=== PATIENT | male | born 1965 | race Caucasian/White ===

== ENCOUNTER 2020-12-27 23:27 | Emergency (ER) | payer SELFPAY ==
--- NOTE | 2020-12-28 00:05 | ERPHSYRPT ---
- History of Present Illness Time Seen by Provider: 12/27/20 23:30 Historian: patient Exam Limitations: no limitations Physician History: 55 years old male presented in the ER with chief complaint of sudden onset right lower quadrant pain gradually worsening for 2 hours, constant, moderate intensity, dull aching to sharp in nature, radiating to periumbilical and right upper quadrant/flank area, aggravated with movement palpation and associated with nausea but no vomiting. Patient denies any fever chills. No difficulty urination. Denies any testicular swelling or pain. No history of kidney stones. Timing/Duration: hour(s) (2), constant, gradual onset, worse Activities at Onset: rest Quality: sharpness Abdominal Pain Onset Location: RLQ Pain Radiation: RUQ, flank Severity of Pain-Max: moderate Severity of Pain-Current: moderate Modifying Factors: Worsens With: movement, palpation, position Associated Symptoms: nausea Previous symptoms: no prior history Allergies/Adverse Reactions: No Known Drug Allergies Allergy (Verified 12/27/20 23:52) Home Medications: No Reportable Medications [No Reported Medications] 12/27/20 [History] Hx Tetanus, Diphtheria Vaccination/Date Given: Yes Hx Influenza Vaccination/Date Given: No Hx Pneumococcal Vaccination/Date Given: No - Review of Systems Constitutional: No Symptoms Eyes: No Symptoms Ears, Nose, & Throat: No Symptoms Respiratory: No Symptoms Cardiac: No Symptoms Abdominal/Gastrointestinal: Abdominal Pain, Nausea Genitourinary Symptoms: No Symptoms Musculoskeletal: No Symptoms Skin: No Symptoms Neurological: No Symptoms Psychological: No Symptoms Endocrine: No Symptoms Hematologic/Lymphatic: No Symptoms - Past Medical History Pertinent Past Medical History: No - Past Surgical History Past Surgical History: No - Social History Smoking Status: Never smoker Exposure to second hand smoke: No Drug Use: none Patient Lives Alone: No - Nursing Vital Signs Nursing Vital Signs: Initial Vital Signs Temperature 97.6 F 12/27/20 23:53 Pulse Rate 118 H 12/27/20 23:53 Respiratory Rate 18 12/27/20 23:53 Blood Pressure 151/109 12/27/20 23:53 O2 Sat by Pulse Oximetry 98 12/27/20 23:53 Pain Scale Pain Intensity 9 - Physical Exam General Appearance: no apparent distress, alert Eye Exam: eyes nml inspection Ears, Nose, Throat Exam: normal ENT inspection, pharynx normal Neck Exam: normal inspection, supple, full range of motion Respiratory Exam: normal breath sounds, lungs clear Cardiovascular Exam: regular rate/rhythm, normal heart sounds Gastrointestinal/Abdomen Exam: soft, normal bowel sounds, tenderness (right lower quadrant/right flank.) Back Exam: normal inspection, normal range of motion, No CVA tenderness Extremity Exam: normal inspection, normal range of motion, pelvis stable Neurologic Exam: alert, oriented x 3, cooperative Skin Exam: normal color SpO2 Interpretation: normal SpO2: 95 O2 Delivery: Room Air Ordered Tests: Active Orders 24 hr Category Date Time Status IV Insertion STAT Care 12/28/20 00:01 Active NPO (ED) STAT Care 12/28/20 00:01 Active ABDOMEN AND PELVIS W CONTRAST [CT] Stat Exams 12/28/20 00:01 Taken CBC W DIFF Stat Lab 12/28/20 00:01 Completed CMP Stat Lab 12/28/20 00:01 Completed LIPASE Stat Lab 12/28/20 00:01 Completed PT INR [PROTIME WITH INR] Stat Lab 12/28/20 00:00 Completed PTT Stat Lab 12/28/20 00:00 Completed UA W/RFX UR CULTURE Stat Lab 12/28/20 00:12 Completed Medication Summary Generic Name Dose Route Start Last Admin Trade Name Freq PRN Reason Stop Dose Admin Sodium Chloride 1,000 mls @ 100 mls/hr 12/28/20 02:15 12/28/20 02:04 Sodium Chloride 0.9% 1000 Ml IV 01/27/21 02:14 100 mls/hr .Q10H YASH Administration Heparin Sodium/Dextrose 25,000 units in 250 mls @ 10 mls/hr 12/28/20 02:30 12/28/20 02:12 Heparin 25,000 Units/D5w 250ml Premix IV 01/27/21 02:29 10 ml/hr .Q24H YASH 10 mls/hr Administration Discontinued Medications Generic Name Dose Route Start Last Admin Trade Name Freq PRN Reason Stop Dose Admin Heparin Sodium (Beef Lung) Confirm 12/28/20 02:06 Heparin 5000 Units/0.5 Ml (High Risk Med) Administered 12/28/20 02:07 Dose 5,000 unit .ROUTE .STK-MED ONE Heparin Sodium (Beef Lung) 5,000 unit 12/28/20 02:11 12/28/20 02:13 Heparin 5000 Units/0.5 Ml (High Risk Med) IV 12/28/20 02:12 5,000 unit STAT ONE Administration Hydromorphone HCl 1 mg 12/28/20 02:03 12/28/20 02:04 Hydromorphone 1 Mg/Ml Injection IV 12/28/20 02:04 1 mg STAT ONE Administration Hydromorphone HCl Confirm 12/28/20 02:02 Hydromorphone 1 Mg/Ml Injection Administered 12/28/20 02:03 Dose 1 mg .ROUTE .STK-MED ONE Sodium Chloride 1,000 mls @ 999 mls/hr 12/28/20 00:01 12/28/20 01:15 Sodium Chloride 0.9% 1000 Ml IV 12/28/20 01:01 Infused .Q1H1M STA Infusion Sodium Chloride Confirm 12/28/20 00:17 Sodium Chloride 0.9% 1000 Ml Administered 12/28/20 00:18 Dose 1,000 mls @ ud .ROUTE .STK-MED ONE Sodium Chloride Confirm 12/28/20 02:00 Sodium Chloride 0.9% 1000 Ml Administered 12/28/20 02:01 Dose 1,000 mls @ ud .ROUTE .STK-MED ONE Heparin Sodium/Dextrose Confirm 12/28/20 02:06 Heparin 25,000 Units/D5w 250ml Premix Administered 12/28/20 02:07 Dose 25,000 units in 250 mls @ ud IV .STK-MED ONE Ketorolac Tromethamine 30 mg 12/28/20 00:01 12/28/20 00:20 Toradol 30 Mg Injection IV 12/28/20 00:02 30 mg STAT ONE Administration Ketorolac Tromethamine Confirm 12/28/20 00:17 Toradol 30 Mg Injection Administered 12/28/20 00:18 Dose 30 mg .ROUTE .STK-MED ONE Morphine Sulfate 4 mg 12/28/20 01:35 12/28/20 01:38 Morphine Sulfate 4 Mg Inj IV 12/28/20 01:36 4 mg STAT ONE Administration Morphine Sulfate Confirm 12/28/20 01:36 Morphine Sulfate 4 Mg Inj Administered 12/28/20 01:37 Dose 4 mg .ROUTE .STK-MED ONE Ondansetron HCl 4 mg 12/28/20 00:01 12/28/20 00:20 Zofran 4 Mg/2 Ml Vial IV 12/28/20 00:02 4 mg STAT ONE Administration Ondansetron HCl Confirm 12/28/20 00:17 Zofran 4 Mg/2 Ml Vial Administered 12/28/20 00:18 Dose 4 mg .ROUTE .STK-MED ONE Lab/Rad Data: Laboratory Result Diagrams 12/28/20 00:01 12/28/20 00:01 Laboratory Results 12/28/20 12/28/20 12/28/20 Range/Units 00:12 00:01 00:01 WBC 10.5 (4.0-10.5) K/mm3 RBC 5.05 (4.1-5.6) M/mm3 Hgb 15.9 (12.5-18.0) gm/dl Hct 47.3 (42-50) % MCV 93.7 (78-100) fl MCH 31.5 (26-32) pg MCHC 33.6 (32-36) g/dl RDW 13.2 (11.5-14.0) % Plt Count 236 (150-450) K/mm3 MPV 10.7 (7.5-11.0) fl Gran % 81.3 H (36.0-66.0) % Eos # (Auto) 0.13 (0-0.5) Absolute Lymphs (auto) 1.39 (1.0-4.6) Absolute Monos (auto) 0.42 (0.0-1.3) Lymphocytes % 13.3 L (24.0-44.0) % Monocytes % 4.0 (0.0-12.0) % Eosinophils % 1.2 (0.00-5.0) % Basophils % 0.2 (0.0-0.4) % Absolute Granulocytes 8.53 H (1.4-6.9) Basophils # 0.02 (0-0.4) PT (9.4-12.5) SECONDS INR (0.8-3.0) APTT (25.1-36.5) SECONDS Sodium 137 (137-145) mmol/L Potassium 4.0 (3.5-5.1) mmol/L Chloride 101 (98-107) mmol/L Carbon Dioxide 26 (22-30) mmol/L Anion Gap 13.6 (5-15) MEQ/L BUN 18 (9-20) mg/dL Creatinine 1.11 (0.66-1.25) mg/dL Estimated GFR > 60.0 ML/MIN Glucose 119 H (74-106) mg/dL Calcium 8.9 (8.4-10.2) mg/dL Total Bilirubin 0.70 (0.2-1.3) mg/dL AST 45 (17-59) U/L ALT 71 H (0-50) U/L Alkaline Phosphatase 106 (38-126) U/L Serum Total Protein 6.5 (6.3-8.2) g/dL Albumin 3.9 (3.5-5.0) g/dL Lipase 90 (23-300) U/L Urine Color YELLOW (YELLOW) Urine Appearance SLIGHTLY CLOUDY (CLEAR) Urine pH 5.0 (5-6) Ur Specific [place] 1.023 (1.005-1.025) Urine Protein NEGATIVE (Negative) Urine Ketones TRACE (NEGATIVE) Urine Blood NEGATIVE (0-5) Beny/ul Urine Nitrite NEGATIVE (NEGATIVE) Urine Bilirubin NEGATIVE (NEGATIVE) Urine Urobilinogen NEGATIVE (0-1) mg/dL Ur Leukocyte Esterase NEGATIVE (NEGATIVE) Urine WBC (Auto) 0-2 (0-5) /HPF Urine RBC (Auto) NONE (0-2) /HPF U Hyaline Cast (Auto) 0-2 (0-2) /LPF U Epithel Cells (Auto) NONE (FEW) /HPF Urine Bacteria (Auto) NONE (NEGATIVE) /HPF Urine Mucus (Auto) SLIGHT (NEGATIVE) /HPF Urine Culture Reflexed NO (NO) Urine Glucose NEGATIVE (NEGATIVE) mg/dL 12/28/20 Range/Units 00:00 WBC (4.0-10.5) K/mm3 RBC (4.1-5.6) M/mm3 Hgb (12.5-18.0) gm/dl Hct (42-50) % MCV (78-100) fl MCH (26-32) pg MCHC (32-36) g/dl RDW (11.5-14.0) % Plt Count (150-450) K/mm3 MPV (7.5-11.0) fl Gran % (36.0-66.0) % Eos # (Auto) (0-0.5) Absolute Lymphs (auto) (1.0-4.6) Absolute Monos (auto) (0.0-1.3) Lymphocytes % (24.0-44.0) % Monocytes % (0.0-12.0) % Eosinophils % (0.00-5.0) % Basophils % (0.0-0.4) % Absolute Granulocytes (1.4-6.9) Basophils # (0-0.4) PT 12.0 (9.4-12.5) SECONDS INR 1.02 (0.8-3.0) APTT 30.6 (25.1-36.5) SECONDS Sodium (137-145) mmol/L Potassium (3.5-5.1) mmol/L Chloride (98-107) mmol/L Carbon Dioxide (22-30) mmol/L Anion Gap (5-15) MEQ/L BUN (9-20) mg/dL Creatinine (0.66-1.25) mg/dL Estimated GFR ML/MIN Glucose (74-106) mg/dL Calcium (8.4-10.2) mg/dL Total Bilirubin (0.2-1.3) mg/dL AST (17-59) U/L ALT (0-50) U/L Alkaline Phosphatase (38-126) U/L Serum Total Protein (6.3-8.2) g/dL Albumin (3.5-5.0) g/dL Lipase (23-300) U/L Urine Color (YELLOW) Urine Appearance (CLEAR) Urine pH (5-6) Ur Specific [place] (1.005-1.025) Urine Protein (Negative) Urine Ketones (NEGATIVE) Urine Blood (0-5) Beny/ul Urine Nitrite (NEGATIVE) Urine Bilirubin (NEGATIVE) Urine Urobilinogen (0-1) mg/dL Ur Leukocyte Esterase (NEGATIVE) Urine WBC (Auto) (0-5) /HPF Urine RBC (Auto) (0-2) /HPF U Hyaline Cast (Auto) (0-2) /LPF U Epithel Cells (Auto) (FEW) /HPF Urine Bacteria (Auto) (NEGATIVE) /HPF Urine Mucus (Auto) (NEGATIVE) /HPF Urine Culture Reflexed (NO) Urine Glucose (NEGATIVE) mg/dL - Progress Progress: improved, pain not gone completely, re-examined Progress Note: 12/28/20 02:06 25 years old is evaluated for right lower quadrant pain radiating to right flank, initially patient did not want any narcotic pain medication, given Toradol and later on morphine and Dilaudid, on reevaluation pain is better but still not completely resolved. Has white count of 10.5, grossly unremarkable chemistries. No acute UTI. CT abdomen pelvis with contrast showed right renal artery thrombosis with infarction. Given heparin bolus and will continue with drip. Discussed with Dr. Garcia at [facility] ER, he will call back after d iscussion with vascular surgery. Patient is counseled. 12/28/20 02:14 Dr. Ventura vascular surgery recommended consulting urology. I have discussed with Dr. Kaur, went over patient presentation, work-up and CT findings and current management, recommended stopping heparin and patient will be seen in [facility] ER. Discussed with Dr. Garcia again and patient is accepted for transfer Discussed with Dr.: Other Counseled pt/family regarding: lab results, diagnosis, rad results - Departure Departure Disposition: Transfer Clinical Impression: Renal arterial thrombosis, Renal infarction Condition: Fair Critical Care Time: Yes Critical Care Time(excluding separately billable procedures): Critical 30-74 mins Referrals: DOCTOR,NO FAMILY [Primary Care Provider] -
[2020-12-28 00:14] LABS: Absolute Neutrophil Ct (ANC) 8.53 (1.4-6.9); BASOPHIL % 0.2 % (0.0-0.4); Basophil (Absolute #) 0.02 (0-0.4); Eosinophil % 1.2 % (0.00-5.0); Eosinophil (Absolute #) 0.13 (0-0.5); Hematocrit 47.3 % (42-50); Hemoglobin 15.9 gm/dl (12.5-18.0); Lymphocyte (Absolute #) 1.39 (1.0-4.6); Lymphocytes % 13.3 % (24.0-44.0); Mean Cell Volume 93.7 fl (78-100); Mean Corpuscular Hemoglobin 31.5 pg (26-32); Mean Corpuscular Hgb Concent. 33.6 g/dl (32-36); Mean Platelet Volume 10.7 fl (7.5-11.0); Monocyte (Absolute #) 0.42 (0.0-1.3); Neutrophil % 81.3 % (36.0-66.0); Platelet Count 236 K/mm3 (150-450); Red Blood Count 5.05 M/mm3 (4.1-5.6); Red Cell Distribution Width 13.2 % (11.5-14.0); White Blood Count 10.5 K/mm3 (4.0-10.5)
[2020-12-28] MEDS ORDERED: Sodium Chloride 0.9% 1000 ML 1,000 ML ONE ×2 (00:17→02:00)
[2020-12-28] MEDS ORDERED: Zofran 4 MG/2 ML VIAL ONE (00:17)
[2020-12-28] MEDS ORDERED: TORAdol 30 mg Injection ONE (00:17)
[2020-12-28] MEDS: Zofran 4 MG/2 ML VIAL IV ONE (00:20)
[2020-12-28] MEDS: TORAdol 30 mg Injection IV ONE (00:20)
[2020-12-28] MEDS: Sodium Chloride 0.9% 1000 ML 1,000 ML IV STA (00:20)
[2020-12-28 00:26] LABS: ALBUMIN 3.9 g/dL (3.5-5.0); ALKALINE PHOSPHATASE 106 U/L (38-126); ANION GAP 13.6 MEQ/L (5-15); BLOOD UREA NITROGEN 18 mg/dL (9-20); CHLORIDE 101 mmol/L (98-107); Calcium 8.9 mg/dL (8.4-10.2); Carbon Dioxide 26 mmol/L (22-30); Creatinine 1 1.11 mg/dL (0.66-1.25); EST GLOMERULAR FILTRATION RATE > 60.0 ML/MIN; Glucose 119 mg/dL (74-106); LIPASE 90 U/L (23-300); SGOT/AST 45 U/L (17-59); SGPT/ALT 71 U/L (0-50); SODIUM 137 mmol/L (137-145); Total Protein 6.5 g/dL (6.3-8.2)
[2020-12-28 00:27] LABS: Appearance SLIGHTLY CLOUDY (CLEAR); Bilirubin NEGATIVE (NEGATIVE); Blood NEGATIVE Ery/ul (0-5); Glucose NEGATIVE (NEGATIVE); Hyaline Casts 0-2 /LPF (0-2); Ketones TRACE (NEGATIVE); Leukocyte Esterase NEGATIVE (NEGATIVE); Mucus SLIGHT /HPF (NEGATIVE); Nitrite NEGATIVE (NEGATIVE); Protein,Urine Dip NEGATIVE (Negative); Specific Gravity 1.023 (1.005-1.025); Urobilinogen NEGATIVE mg/dL (0-1); WBC 0-2 /HPF (0-5)
[2020-12-28] MEDS ORDERED: MORPHINE SULFATE 4 MG INJ ONE (01:36)
[2020-12-28] MEDS: MORPHINE SULFATE 4 MG INJ IV ONE (01:38)
[2020-12-28 01:57] LABS: INR 1.02 (0.8-3.0)
[2020-12-28 01:59] LABS: PTT 30.6 SECONDS (25.1-36.5)
[2020-12-28] MEDS ORDERED: Hydromorphone 1 mg/ml Injection ONE (02:02)
[2020-12-28] MEDS: Hydromorphone 1 mg/ml Injection IV ONE (02:04)
[2020-12-28] MEDS: Sodium Chloride 0.9% 1000 ML 1,000 ML IV SCH (02:04)
[2020-12-28] MEDS ORDERED: Heparin 5000 UNITS/0.5 ML (HIGH RISK MED) ONE (02:06)
[2020-12-28] MEDS ORDERED: Heparin 25,000 units/D5W 250ML PREMIX 25,000 UNITS/250 ML BAG IV ONE (02:06)
[2020-12-28 02:09] VITALS: O2SAT 95
[2020-12-28] MEDS: Heparin 25,000 units/D5W 250ML PREMIX 25,000 UNITS/250 ML BAG IV SCH (02:12)
[2020-12-28] MEDS: Heparin 5000 UNITS/0.5 ML (HIGH RISK MED) IV ONE (02:13)
[2020-12-28 02:14] VITALS: BP 165/140; PULSE 111
--- NOTE | 2020-12-28 07:22 | XRAY ---
Indication: Right lower quadrant pain. Nausea. Multiple contiguous axial images obtained through the abdomen and pelvis using 80 cc Isovue 370 contrast. Comparison: None. Lung bases demonstrates bilateral dependent atelectasis. No infiltrate or effusion. Heart is not enlarged. Noncontrasted stomach and bowel loops nonobstructed. Normal appendix. No free fluid/air. Right kidney renal artery demonstrates obstruction in the proximal segment with remaining right kidney demonstrating little to no enhancement. Incidental 5.5 cm right lower pole renal cyst. Left kidney demonstrates normal enhancement and excretion. Remaining liver, gallbladder, pancreas, spleen, adrenal glands, ureters, and urinary bladder are unremarkable. Mild scattered aortoiliac calcifications. No AAA or pathological retroperitoneal lymphadenopathy. Osseous structures intact with minimal degenerative changes throughout the spine. No ventral or inguinal hernias. Impression: 1. 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 2. Incidental right renal cyst and minimal degenerative spondylosis. Comment: Preliminary interpretation was made by [facility]. No critical discrepancy.
== END 2020-12-28 02:41 | disposition short-term general hospital (02) ==
LOC: ED 23:27
DX: N28.0 Ischemia and infarction of kidney (principal)
CPT/HCPCS: 36000; 36415; 74177; 80053; 81001; 83690; 85025; 85610; 85730; 96360; 96365; 96374; 96375; 99285; J1170; J1644; J1885; J2270; J2405

== ENCOUNTER 2023-09-11 10:17 | Emergency (ER) | payer BC, OTHER ==
[2023-09-11 10:38] VITALS: TEMP 96.5
[2023-09-11] MEDS ORDERED: Sodium Chloride 0.9% 1000 ML 1,000 ML ONE (10:50)
[2023-09-11] MEDS: Sodium Chloride 0.9% 1000 ML 1,000 ML IV STA (10:50)
[2023-09-11 10:51] LABS: Absolute Neutrophil Ct (ANC) 4.84 x10^3/uL (1.4-6.9); BASOPHIL % 0.4 % (0.0-0.4); Basophil (Absolute #) 0.03 x10^3/uL (0-0.4); Eosinophil % 2.5 % (0.00-5.0); Eosinophil (Absolute #) 0.17 x10^3/uL (0-0.5); Hematocrit 46.6 % (42-50); Hemoglobin 16.1 g/dL (12.5-18.0); IMMATURE GRAN # 0.01 x10^3u/L (0.00-0.03); IMMATURE GRAN % 0.1 % (0.00-0.4); Lymphocyte (Absolute #) 1.19 x10^3/uL (1.0-4.6); Lymphocytes % 17.6 % (24.0-44.0); Mean Cell Volume 92.5 fL (78-100); Mean Corpuscular Hemoglobin 31.9 pg (26-32); Mean Corpuscular Hgb Concent. 34.5 g/dL (32-36); Mean Platelet Volume 9.9 fL (7.5-11.0); Monocyte (Absolute #) 0.51 x10^3/uL (0.0-1.3); Monocytes % 7.6 % (0.0-12.0); Neutrophil % 71.8 % (36.0-66.0); Platelet Count 249 x10^3/uL (150-450); Red Blood Count 5.04 x10^6/uL (4.1-5.6); Red Cell Distribution Width 12.5 % (11.5-14.0); White Blood Count 6.8 x10^3/uL (4.0-10.5)
[2023-09-11 10:59] LABS: ALBUMIN 4.4 g/dL (3.5-5.0); ALKALINE PHOSPHATASE 67 U/L (38-126); ANION GAP 11.7 MEQ/L (5-15); BLOOD UREA NITROGEN 17 mg/dL (9-20); CHLORIDE 102 mmol/L (98-107); Calcium 9.4 mg/dL (8.4-10.2); Carbon Dioxide 25 mmol/L (22-30); Creatinine 1 1.15 mg/dL (0.66-1.25); EST GLOMERULAR FILTRATION RATE 73.8 ML/MIN; ETHYL ALCOHOL < 10 mg/dL (0-10); Glucose 201 mg/dL (74-106); Potassium 4.8 mmol/L (3.5-5.1); SGOT/AST 23 U/L (17-59); SGPT/ALT 17 U/L (0-50); SODIUM 133 mmol/L (137-145); Total Protein 7.3 g/dL (6.3-8.2)
[2023-09-11 11:00] LABS: INR 0.97 (0.8-3.0); PROTIME 10.6 SECONDS (9.4-12.5)
--- NOTE | 2023-09-11 11:07 | ERPHSYRPT ---
- History of Present Illness Time Seen by Provider: 09/11/23 10:35 Source: patient, family Exam Limitations: no limitations Patient Subjective Stated Complaint: Sycope Triage Nursing Assessment: Patient brought into ED per EMS and transferred self to bed. Patient A+O X3. Patient's skin pink, warm and dry. EMS reports getting called to patient with syncopal episode. Upon arrival patient was lying down and alert. Patient reports he was [facility] on [facility] when he started getting lightheaded, dizzy, nauseated, and broke out in a cold sweat. Patient states he bent down and doesn't remember anything after that. stat es she felt patient lean on shoulder and he was mumbling and started getting stiff and was layed down. Patient denies pain or discomfort. BS 140. Physician History: This is a 57-year-old white male patient who receives his primary medical care at the [facility] presents to the emergency department after having a syncopal episode that occurred prior to arrival. The paramedics brought him into this facility. Patient was mildly orthostatic upon arrival to the emergency department. Patient denies headache. Patient denies chest pain. Patient denies shortness of breath. He had no nausea vomiting or diarrhea symptoms. Patient did state in the last few days he is felt as though he might of had the flu. He has not slept much in the last 2 days. He has not been eating or drinking much. Patient is not diabetic. Patient did not hit his head. Patient has no diagnosed cardiac disease. 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 Patient is supposed to be on anticoagulation therapy about the spouse, who added independent, additional history stated that the patient refused to take it. Patient's spouse also observed the events of today which the patient does not fully recall. Patient did not soil his pants with urine or stool. Patient's symptoms have completely resolved at the time of this examination. Timing/Duration: today Severity: moderate (During the event) Character of Deficits: none Deficits: no difficulties Baseline/Normal Cognition: alert oriented x 3 Current Cognition: alert oriented x 3 Baseline Gait: walks w/o assistance Associated Symptoms: loss of consciousness, nausea, seizures (Seizure-like activity), other (Diaphoresis) Allergies/Adverse Reactions: No Known Drug Allergies Allergy (Verified 09/11/23 10:20) Hx Tetanus, Diphtheria Vaccination/Date Given: Yes Hx Influenza Vaccination/Date Given: No Hx Pneumococcal Vaccination/Date Given: No Immunizations Up to Date: Yes Travel Risk - International Travel Have you traveled outside of the country in past 3 weeks: No - Coronavirus Screening Are you exhibiting any of the following symptoms?: No Close contact with a COVID-19 positive Pt in past 14-21 Days: No - Vaccine Status Have you recieved a Covid-19 vaccination: No - Review of Systems Constitutional: Weakness Eyes: No Symptoms Ears, Nose, & Throat: No Symptoms Respiratory: No Symptoms Cardiac: No Symptoms Abdominal/Gastrointestinal: No Symptoms Genitourinary Symptoms: No Symptoms Musculoskeletal: No Symptoms Skin: No Symptoms Neurological: Seizure (Seizure-like activity following syncopal episode) Endocrine: No Symptoms Hematologic/Lymphatic: No Symptoms Immunological/Allergic: No Symptoms All Other Systems: Reviewed and Negative - Past Medical History Pertinent Past Medical History: No Neurological History: No Pertinent History ENT History: No Pertinent History Cardiac History: High Cholesterol, Hypertension Respiratory History: No Pertinent History Endocrine Medical History: No Pertinent History Musculoskeletal History: No Pertinent History GI Medical History: No Pertinent History History: No Pertinent History Psycho-Social History: No Pertinent History - Past Surgical History Past Surgical History: Yes Neuro Surgical History: No Pertinent History Cardiac: No Pertinent History Respiratory: No Pertinent History Gastrointestinal: No Pertinent History Genitourinary: Other Musculoskeletal: No Pertinent History Male Surgical History: Vasectomy Other Surgical History: Stent in right kidney - Social History Smoking Status: Never smoker Exposure to second hand smoke: No Drug Use: none Patient Lives Alone: No - Nursing Vital Signs Nursing Vital Signs: Initial Vital Signs Temperature 96.5 F 09/11/23 10:21 Pulse Rate 84 09/11/23 10:21 Respiratory Rate 18 09/11/23 10:21 Blood Pressure 129/84 09/11/23 10:21 O2 Sat by Pulse Oximetry 99 09/11/23 10:21 Pain Scale Pain Intensity 0 - [place] Coma Scale Best Eye Response ([place]): (4) open spontaneously Best Verbal Response ([place]): (5) oriented Best Motor Response ([place]): (6) obeys commands [place] Total: 15 - Physical Exam General Appearance: no apparent distress, alert, anxiety Eye Exam: bilateral eye: normal inspection, PERRL, EOMI Ears, Nose, Throat Exam: normal ENT inspection, moist mucous membranes Neck Exam: normal inspection, non-tender, supple, full range of motion Respiratory: normal breath sounds, lungs clear, airway intact, No chest tenderness, No respiratory distress Cardiovascular: regular rate/rhythm, normal heart sounds, normal peripheral pulses Gastrointestinal: soft, normal bowel sounds, No tenderness Rectal Exam: not done Back Exam: normal inspection, normal range of motion, No CVA tenderness, No vertebral tenderness Extremity Exam: normal inspection, normal range of motion, pelvis stable Mental Status: alert, oriented x 3, cooperative engagement liaison Exam: normal hearing, normal speech, PERRL, tongue midline Coordination/Gait: normal finger to nose, normal gait, normal cerebellar fun ction Motor/Sensory: no motor deficit, no sensory deficit, no pronator drift Skin Exam: normal color, warm, dry SpO2 Interpretation: normal SpO2: 99 O2 Delivery: Room Air - Course Nursing assessment & vital signs reviewed: Yes EKG Interpreted by Me: RATE (84), Sinus Rhythm, NORMAL AXIS, prolonged QT interv al, Other (No acute ischemic changes on today's twelve-lead EKG.) Ordered Tests: Active Orders 24 hr Category Date Time Status Clean Catch Urine Specimen STAT Care 09/11/23 10:43 Active EKG-ER Only STAT Care 09/11/23 10:43 Active IV Insertion STAT Care 09/11/23 10:43 Active Orthostatic Vital Signs STAT Care 09/11/23 10:43 Active POCT Glucose Check STAT Care 09/11/23 10:43 Active Pulse Oximetry (ED) STAT Care 09/11/23 10:43 Active HEAD WITHOUT CONTRAST [CT] Stat Exams 09/11/23 10:43 Completed BLOOD CULTURE Stat Lab 09/11/23 11:10 Received CBC W DIFF Stat Lab 09/11/23 10:45 Completed CMP Stat Lab 09/11/23 10:45 Completed ETHYL ALCOHOL Stat Lab 09/11/23 10:45 Completed MONO SCREEN Stat Lab 09/11/23 10:45 Completed PROTIME WITH INR Stat Lab 09/11/23 10:45 Completed TROPONIN Q4H Lab 09/11/23 10:45 Completed TROPONIN Q4H Lab 09/11/23 13:40 Completed TROPONIN Q4H Lab 09/11/23 18:45 Ordered UA W/RFX UR CULTURE Stat Lab 09/11/23 12:32 Completed Urine Triage Profile Stat Lab 09/11/23 12:32 Completed Medication Summary Discontinued Medications Generic Name Dose Route Start Last Admin Trade Name Toma PRN Reason Stop Dose Admin Sodium Chloride 1,000 mls @ 999 mls/hr 09/11/23 10:43 09/11/23 12:00 Sodium Chloride 0.9% 1000 Ml IV 09/11/23 11:43 Infused .Q1H1M STA Infusion Sodium Chloride Confirm 09/11/23 10:50 Sodium Chloride 0.9% 1000 Ml Administered 09/11/23 10:51 Dose 1,000 mls @ ud .ROUTE .STK-MED ONE Ceftriaxone Sodium 1 gm in 100 mls @ 200 mls/hr 09/11/23 13:15 09/11/23 14:04 Rocephin 1 Gm / 100 Ml Nacl IV 09/11/23 13:44 Infused STAT ONE Infusion Ceftriaxone Sodium Confirm 09/11/23 13:24 Rocephin 1 Gm / 100 Ml Nacl Administered 09/11/23 13:25 Dose 1 gm in 100 mls @ ud IV .STK-MED ONE Lab/Rad Data: Laboratory Result Diagrams 09/11/23 10:45 09/11/23 10:45 Laboratory Results 09/11/23 09/11/23 09/11/23 Range/Units 13:40 12:32 12:32 WBC (4.0-10.5) x10^3/uL RBC (4.1-5.6) x10^6/uL Hgb (12.5-18.0) g/dL Hct (42-50) % MCV (78-100) fL MCH (26-32) pg MCHC (32-36) g/dL RDW (11.5-14.0) % Plt Count (150-450) x10^3/uL MPV (7.5-11.0) fL Gran % (36.0-66.0) % Immature Gran % (Auto) (0.00-0.4) % Nucleat RBC Rel Count (0.00-0.1) % Eos # (Auto) (0-0.5) x10^3/uL Immature Gran # (Auto) (0.00-0.03) x10^3u/L Absolute Lymphs (auto) (1.0-4.6) x10^3/uL Absolute Monos (auto) (0.0-1.3) x10^3/uL Absolute Nucleated RBC (0.00-0.01) x10^3u/L Lymphocytes % (24.0-44.0) % Monocytes % (0.0-12.0) % Eosinophils % (0.00-5.0) % Basophils % (0.0-0.4) % Absolute Granulocytes (1.4-6.9) x10^3/uL Basophils # (0-0.4) x10^3/uL PT (9.4-12.5) SECONDS INR (0.8-3.0) Sodium (137-145) mmol/L Potassium (3.5-5.1) mmol/L Chloride (98-107) mmol/L Carbon Dioxide (22-30) mmol/L Anion Gap (5-15) MEQ/L BUN (9-20) mg/dL Creatinine (0.66-1.25) mg/dL Estimated GFR ML/MIN Glucose (74-106) mg/dL Calcium (8.4-10.2) mg/dL Total Bilirubin (0.2-1.3) mg/dL AST (17-59) U/L ALT (0-50) U/L Alkaline Phosphatase (38-126) U/L Troponin I 0.028 (0.000-0.034) ng/mL Serum Total Protein (6.3-8.2) g/dL Albumin (3.5-5.0) g/dL Urine Color Yellow (Yellow) Urine Appearance Clear (Clear) Urine pH 6.0 (4.6-8.0) Ur Specific [place] 1.020 (1.005-1.030) Urine Protein 30 (Negative) Urine Glucose (UA) Negative (Negative) mg/dL Urine Ketones 15 A (Negative) Urine Blood Negative (Negative) Urine Nitrite Negative (Negative) Urine Bilirubin Negative (Negative) Urine Urobilinogen 1.0 A (0.2) mg/dL Ur Leukocyte Esterase Negative (Negative) U Hyaline Cast (Auto) 11-20 (0-2) /LPF Urine Microscopic RBC 0-2 (0-5) /HPF Urine Microscopic WBC 0-2 (0-5) /HPF Ur Epithelial Cells None Seen (None Seen) /HPF Urine Bacteria None Seen (None Seen) /HPF Urine Culture Reflexed NO (NO) Urine Opiates Level NEGATIVE (NEGATIVE) Ur Methadone NEGATIVE (NEGATIVE) Urine Barbiturates NEGATIVE (NEGATIVE) Ur Phencyclidine (PCP) NEGATIVE (NEGATIVE) Urine Amphetamine POSITIVE A (NEGATIVE) U Benzodiazepine Level NEGATIVE (NEGATIVE) Urine Cocaine NEGATIVE (NEGATIVE) Urine Marijuana (THC) NEGATIVE (NEGATIVE) Ethyl Alcohol (0-10) mg/dL Monoscreen (NEGATIVE) Influenza Type A Ag (NEGATIVE) Influenza Type B Ag (NEGATIVE) RSV (PCR) (NEGATIVE) SARS-CoV-2 (PCR) (NEGATIVE) 09/11/23 09/11/23 09/11/23 Range/Units 11:10 10:45 10:45 WBC (4.0-10.5) x10^3/uL RBC (4.1-5.6) x10^6/uL Hgb (12.5-18.0) g/dL Hct (42-50) % MCV (78-100) fL MCH (26-32) pg MCHC (32-36) g/dL RDW (11.5-14.0) % Plt Count (150-450) x10^3/uL MPV (7.5-11.0) fL Gran % (36.0-66.0) % Immature Gran % (Auto) (0.00-0.4) % Nucleat RBC Rel Count (0.00-0.1) % Eos # (Auto) (0-0.5) x10^3/uL Immature Gran # (Auto) (0.00-0.03) x10^3u/L Absolute Lymphs (auto) (1.0-4.6) x10^3/uL Absolute Monos (auto) (0.0-1.3) x10^3/uL Absolute Nucleated RBC (0.00-0.01) x10^3u/L Lymphocytes % (24.0-44.0) % Monocytes % (0.0-12.0) % Eosinophils % (0.00-5.0) % Basophils % (0.0-0.4) % Absolute Granulocytes (1.4-6.9) x10^3/uL Basophils # (0-0.4) x10^3/uL PT (9.4-12.5) SECONDS INR (0.8-3.0) Sodium (137-145) mmol/L Potassium (3.5-5.1) mmol/L Chloride (98-107) mmol/L Carbon Dioxide (22-30) mmol/L Anion Gap (5-15) MEQ/L BUN (9-20) mg/dL Creatinine (0.66-1.25) mg/dL Estimated GFR ML/MIN Glucose (74-106) mg/dL Calcium (8.4-10.2) mg/dL Total Bilirubin (0.2-1.3) mg/dL AST (17-59) U/L ALT (0-50) U/L Alkaline Phosphatase (38-126) U/L Troponin I 0.034 (0.000-0.034) ng/mL Serum Total Protein (6.3-8.2) g/dL Albumin (3.5-5.0) g/dL Urine Color (Yellow) Urine Appearance (Clear) Urine pH (4.6-8.0) Ur Specific [place] (1.005-1.030) Urine Protein (Negative) Urine Glucose (UA) (Negative) mg/dL Urine Ketones (Negative) Urine Blood (Negative) Urine Nitrite (Negative) Urine Bilirubin (Negative) Urine Urobilinogen (0.2) mg/dL Ur Leukocyte Esterase (Negative) U Hyaline Cast (Auto) (0-2) /LPF Urine Microscopic RBC (0-5) /HPF Urine Microscopic WBC (0-5) /HPF Ur Epithelial Cells (None Seen) /HPF Urine Bacteria (None Seen) /HPF Urine Culture Reflexed (NO) Urine Opiates Level (NEGATIVE) Ur Methadone (NEGATIVE) Urine Barbiturates (NEGATIVE) Ur Phencyclidine (PCP) (NEGATIVE) Urine Amphetamine (NEGATIVE) U Benzodiazepine Level (NEGATIVE) Urine Cocaine (NEGATIVE) Urine Marijuana (THC) (NEGATIVE) Ethyl Alcohol (0-10) mg/dL Monoscreen NEGATIVE (NEGATIVE) Influenza Type A Ag NEGATIVE (NEGATIVE) Influenza Type B Ag NEGATIVE (NEGATIVE) RSV (PCR) NEGATIVE (NEGATIVE) SARS-CoV-2 (PCR) NEGATIVE (NEGATIVE) 09/11/23 09/11/23 09/11/23 Range/Units 10:45 10:45 10:45 WBC 6.8 (4.0-10.5) x10^3/uL RBC 5.04 (4.1-5.6) x10^6/uL Hgb 16.1 (12.5-18.0) g/dL Hct 46.6 (42-50) % MCV 92.5 (78-100) fL MCH 31.9 (26-32) pg MCHC 34.5 (32-36) g/dL RDW 12.5 (11.5-14.0) % Plt Count 249 (150-450) x10^3/uL MPV 9.9 (7.5-11.0) fL Gran % 71.8 H (36.0-66.0) % Immature Gran % (Auto) 0.1 (0.00-0.4) % Nucleat RBC Rel Count 0.0 (0.00-0.1) % Eos # (Auto) 0.17 (0-0.5) x10^3/uL Immature Gran # (Auto) 0.01 (0.00-0.03) x10^3u/L Absolute Lymphs (auto) 1.19 (1.0-4.6) x10^3/uL Absolute Monos (auto) 0.51 (0.0-1.3) x10^3/uL Absolute Nucleated RBC 0.00 (0.00-0.01) x10^3u/L Lymphocytes % 17.6 L (24.0-44.0) % Monocytes % 7.6 (0.0-12.0) % Eosinophils % 2.5 (0.00-5.0) % Basophils % 0.4 (0.0-0.4) % Absolute Granulocytes 4.84 (1.4-6.9) x10^3/uL Basophils # 0.03 (0-0.4) x10^3/uL PT 10.6 (9.4-12.5) SECONDS INR 0.97 (0.8-3.0) Sodium 133 L (137-145) mmol/L Potassium 4.8 (3.5-5.1) mmol/L Chloride 102 (98-107) mmol/L Carbon Dioxide 25 (22-30) mmol/L Anion Gap 11.7 (5-15) MEQ/L BUN 17 (9-20) mg/dL Creatinine 1.15 (0.66-1.25) mg/dL Estimated GFR 73.8 ML/MIN Glucose 201 H (74-106) mg/dL Calcium 9.4 (8.4-10.2) mg/dL Total Bilirubin 1.90 H (0.2-1.3) mg/dL AST 23 (17-59) U/L ALT 17 (0-50) U/L Alkaline Phosphatase 67 (38-126) U/L Troponin I (0.000-0.034) ng/mL Serum Total Protein 7.3 (6.3-8.2) g/dL Albumin 4.4 (3.5-5.0) g/dL Urine Color (Yellow) Urine Appearance (Clear) Urine pH (4.6-8.0) Ur Specific [place] (1.005-1.030) Urine Protein (Negative) Urine Glucose (UA) (Negative) mg/dL Urine Ketones (Negative) Urine Blood (Negative) Urine Nitrite (Negative) Urine Bilirubin (Negative) Urine Urobilinogen (0.2) mg/dL Ur Leukocyte Esterase (Negative) U Hyaline Cast (Auto) (0-2) /LPF Urine Microscopic RBC (0-5) /HPF Urine Microscopic WBC (0-5) /HPF Ur Epithelial Cells (None Seen) /HPF Urine Bacteria (None Seen) /HPF Urine Culture Reflexed (NO) Urine Opiates Level (NEGATIVE) Ur Methadone (NEGATIVE) Urine Barbiturates (NEGATIVE) Ur Phencyclidine (PCP) (NEGATIVE) Urine Amphetamine (NEGATIVE) U Benzodiazepine Level (NEGATIVE) Urine Cocaine (NEGATIVE) Urine Marijuana (THC) (NEGATIVE) Ethyl Alcohol < 10 (0-10) mg/dL Monoscreen (NEGATIVE) Influenza Type A Ag (NEGATIVE) Influenza Type B Ag (NEGATIVE) RSV (PCR) (NEGATIVE) SARS-CoV-2 (PCR) (NEGATIVE) - Progress Progress: improved, re-examined Progress Note: 09/11/23 11:10 This patient's medical issue is 1 of moderate complexity. The level of complexity in the workup performed is based on review of the patient's past medical history, review of the patient's medication list, review of patient drug allergy list, history of present illness and physical findings on examination. The workup in this patient includes placement of an intravenous line, infusion of normal saline solution, urinalysis, urine drug screen, ethyl alcohol level, CBC, CMP, troponin level, twelve-lead EKG and CT scan of the head without contrast. 09/11/23 12:12 CT scan of the head without contrast was interpreted by the radiologist and I reviewed the impression. The impression states CT head without contrast unremarkable. There is a retention cyst in the right maxillary sinus. There is also evidence of left maxillary sinusitis 09/11/23 14:24 I interpreted the patient's laboratory data results. Patient tested positive for amphetamines. There is no other lab results that show any acute or emergent medical issue. Patient reexamined. He is not short of breath. He is not having any chest pain. He is tolerating a diet. Repeat, 3-hour twelve-lead EKG is unchanged from the prior twelve-lead EKG. I interpreted this second EKG performed on 09/11/2023 at 1330. It shows a sinus rhythm of 76. There is prolonged QT interval. No other acute findings present. There is no acute ischemia present. The patient has no chest pain and he is not short of breath. He has 3-hour troponin level decreased to 0.028 which is normal. Patient will be discharged home with a Holter monitor in place. Counseled pt/family regarding: lab results, diagnosis, need for follow-up, rad results Medical Desision Making - Independent Historian Additional History obtained from: Spouse - Diagnostic Testing Diagnostic test were ordered, analyzed, and reviewed by me: Yes Radiological Interpretation: Reviewed by me, Teleradiologist Report - Risk of complications The pt has a mod risk of morbidity or mortality based on: Need for prescription drug management - Departure Departure Disposition: Home Clinical Impression: Maxillary sinusitis, Retention cyst of nasal sinus, Episode of syncope Condition: Stable Critical Care Time: No Referrals: DOCTOR,NO FAMILY [Primary Care Provider] - Follow up/PCP as directed Additional Instructions: Take your medication as prescribed. Wear your Holter monitor as prescribed. Call your primary care provider on 09/13/2023 to make arrangements for further evaluation and management. Do not consume any illicit drugs. Do not consume any caffeinated products. Prescriptions: Amoxicillin 500 mg Cap [Amoxil 500 mg] 500 mg PO TID #21 cap Prednisone 10 mg [Deltasone 10 mg] 10 mg PO TID #12 tablet
--- NOTE | 2023-09-11 11:56 | XRAY ---
CLINICAL HISTORY: Syncopal episode TECHNIQUE: An axial non-contrast CT scan of the brain was performed from the skull base to the high parietal region with sagittal and coronal reformats. Images were sent PACs for interpretation. COMPARISON: None. FINDINGS: The visualized brain parenchyma shows a normal appearance. An-white matter differentiation is maintained. No midline shifts or deformity. No intracerebral or extra axial hematoma. Normal size and configuration of the cerebral ventricles. Normal CT appearance of the posterior fossa structures namely the cerebellar hemispheres, brainstem, and cerebellar peduncles. The IACs are unremarkable. The cerebello-pontine angles are clear. The osseous structures in the skull base are unremarkable. No definite calvarium fractures. The scanned paranasal sinuses show a retention cyst in the right maxillary sinus and mucosal thickening in the left maxillary sinus. IMPRESSION: 1. The non-enhanced CT study for the brain is unremarkable. 2. Retention cyst in the right maxillary sinus and mucosal thickening in the left maxillary sinus(sinusitis). 3. For acute infarct MRI is the modality of choice Electronically Signed by: Bhavana Seymour MD. (09/11/2023 11:52:39 EST)
[2023-09-11 12:00] LABS: INFLUENZA A NEGATIVE (NEGATIVE); INFLUENZA B NEGATIVE (NEGATIVE); RESPIRATORY SYNCTIAL VIRUS NEGATIVE (NEGATIVE); SARS-CoV-2 Xpert Express NEGATIVE (NEGATIVE)
[2023-09-11 12:54] LABS: Barbiturate,Urine NEGATIVE (NEGATIVE); Benzodiazepine,Urine NEGATIVE (NEGATIVE); Cocaine,Urine NEGATIVE (NEGATIVE); Methadone,Urine NEGATIVE (NEGATIVE); Opiate,Urine NEGATIVE (NEGATIVE); PCP,Urine NEGATIVE (NEGATIVE); THC,Urine NEGATIVE (NEGATIVE)
[2023-09-11 12:55] LABS: ADD URINE CULTURE? NO (NO); Appearance Clear (Clear); Bacteria None Seen /HPF (None Seen); Bilirubin Negative (Negative); Blood Negative (Negative); Epithelial Cells None Seen /HPF (None Seen); Glucose, Urine Negative (Negative); Ketones 15 (Negative); Leukocyte Esterase Negative (Negative); Nitrite Negative (Negative); Protein,Urine Dip 30 (Negative); RBC 0-2 /HPF (0-5); WBC 0-2 /HPF (0-5)
[2023-09-11 13:20] LABS: Amphetamine,Urine POSITIVE (NEGATIVE)
[2023-09-11] MEDS ORDERED: ROCEPHIN 1 GM / 100 ML NaCl 1 GM/100 ML IVPB IV ONE (13:24)
[2023-09-11] MEDS: ROCEPHIN 1 GM / 100 ML NaCl 1 GM/100 ML IVPB IV ONE (13:25)
[2023-09-11 15:24] VITALS: BP 132/80; PULSE 96; RESP 16; O2SAT 97
== END 2023-09-11 15:02 | disposition home or self-care (01) ==
LOC: ED 10:17
DX: J32.0 Chronic maxillary sinusitis (principal); J34.1 Cyst and mucocele of nose and nasal sinus; R55 Syncope and collapse; E78.5 Hyperlipidemia, unspecified; I10 Essential (primary) hypertension; Z79.52 Long term (current) use of systemic steroids
CPT/HCPCS: 0241U; 36415; 70450; 80053; 80307; 81001; 82077; 84484; 85025; 85610; 86308; 87040; 93005; 93225; 94760; 99284; 93226; J0696